=== PATIENT | female | born 1970 | race Caucasian/White ===

== ENCOUNTER 2018-12-27 14:53 | Outpatient (CLI) | payer OTHER | END 2018-12-27 23:59 | disposition home or self-care (01) | LOC: STAR 14:53 | PROVIDERS: ATTEND Obstetrics & Gynecology | DX: Z01.818 Encounter for other preprocedural examination (principal); D25.9 Leiomyoma of uterus, unspecified; N92.0 Excessive and frequent menstruation with regular cycle; N84.0 Polyp of corpus uteri | CPT/HCPCS: 36415; 81003; 81025; 85025 ==

== ENCOUNTER 2019-01-06 08:23 | Day surgery (SDC) | payer OTHER ==
[~2019-01-06] VITALS: Ht 154.9 cm; Wt 77.3 kg
[~2019-01-06 08:23] MED LIST: NORE5TAB PO
[2019-01-06] MEDS ORDERED: LACTATED RINGERS 1,000 ML IV SCH (08:48)
[2019-01-06 08:49] VITALS: BP 136/67
[2019-01-06] MEDS ORDERED: LIDOCAINE-MPF 1%, 2ML ONE (08:58)
[2019-01-06] MEDS ORDERED: OxyconTIN ER 10 MG TAB.ER PO ONE (09:00)
[2019-01-06] MEDS ORDERED: LIDOCAINE-MPF 1%, 2ML INFIL ONE (09:00)
[2019-01-06] MEDS ORDERED: ACETAMINOPHEN 500 MG TABLET PO ONE (09:00)
[2019-01-06] MEDS ORDERED: MIDAZOLAM 1 MG/ML, 2ML ONE (09:23)
[2019-01-06] MEDS ORDERED: FENTANYL PF 100 MCG/2ML ONE (09:23)
[2019-01-06] MEDS ORDERED: BUPIVACAINE/PF 0.25% ONE (09:27)
[2019-01-06 09:38] LABS: HCG UR SG 1.024 (1.003-1.030)
[2019-01-06] MEDS ORDERED: SILVER NITRATE STICK TP ONE (09:38)
[2019-01-06] MEDS ORDERED: ONDANSETRON 2MG/ML, 2ML ONE (10:15)
[2019-01-06] MEDS ORDERED: PROPOFOL 10 MG/ML, 20ML ONE (10:15)
[2019-01-06] MEDS ORDERED: KETOROLAC 30 MG/1 ML ONE (10:15)
[2019-01-06] MEDS ORDERED: DEXAMETHASONE 4 MG/ML, 1ML ONE (10:15)
[2019-01-06] MEDS ORDERED: LIDOCAINE-MPF 2% ,5ML ONE (10:15)
[2019-01-06] MEDS ORDERED: PROMETHAZINE 25 MG/ML, 1ML IV PRN (10:30)
[2019-01-06] MEDS ORDERED: HALOPERIDOL 5 MG/ML IV PRN (10:30)
[2019-01-06] MEDS ORDERED: ACETAMINOPHEN 325 MG TABLET PO PRN (10:30)
[2019-01-06] MEDS ORDERED: HYDROmorphone 2 MG/ML, 1ML IVPush PRN (10:30)
[2019-01-06] MEDS ORDERED: FENTANYL PF 100 MCG/2ML IV PRN (10:30)
[2019-01-06] MEDS ORDERED: OXYcodone 5 MG/5 ML ORAL.SOL UDC PO PRN (10:30)
[2019-01-06] MEDS ORDERED: MEPERIDINE/PF 25MG/0.5ML IVPush PRN (10:30)
[2019-01-06] MEDS ORDERED: CEFOTETAN 2 GM ONE (15:24)
== END 2019-01-06 12:55 | disposition home or self-care (01) ==
LOC: OUT 08:23
PROVIDERS: ATTEND Obstetrics & Gynecology
DX: N84.0 Polyp of corpus uteri (principal); D25.9 Leiomyoma of uterus, unspecified; Z79.899 Other long term (current) drug therapy; Z91.041 Radiographic dye allergy status; Z80.3 Family history of malignant neoplasm of breast; Z80.0 Family history of malignant neoplasm of digestive organs; Z82.61 Family history of arthritis
CPT/HCPCS: 36415; 58563; 81025; 86850; 86900; 88305; J1100; J1885; J2405; J2704; J3490; J7120